=== PATIENT | male | born 1990 | race Caucasian/White ===

== ENCOUNTER 2020-05-13 23:50 | Emergency (ER) | payer BC, SELFPAY ==
[2020-05-13 23:55] VITALS: BP 138/82; PULSE 83; RESP 18; TEMP 36.4; O2SAT 99
--- NOTE | 2020-05-14 00:13 | ED.DENTAL ---
HPI - Dental/Oral General Chief complaint: Dental/Oral Stated complaint: dental pain Time Seen by Provider: 05/14/20 00:12 History of Present Illness HPI Narrative: Severe pain in the right lower molars for a few days. Believes that he lost a filling. Tried OTC medications without relief. Unable to get a dentist appointment for several days. No fever, swelling, drainage. Related Data Home Medications Medication Instructions Recorded Confirmed escitalopram oxalate [Lexapro] 10 mg PO DAILY 05/14/20 ibuprofen 400 mg PO Q6H PRN 05/14/20 05/14/20 omeprazole 20 mg PO DAILY 05/14/20 Allergies Allergy/AdvReac Type Severity Reaction Status Date / Time No Known Allergies Allergy Verified 05/14/20 00:11 Review of Systems Review of Systems: All systems reviewed & are unremarkable except as noted in HPI and below Constitutional: Constitutional: Denies fever(s) ENT: Reports dysphagia, Denies vertigo and Denies dizziness Cardiovascular: Cardiovascular: Denies chest pain Respiratory: Respiratory: Denies dyspnea PMFSH Social History Social History Gender identity (if verbalized by the patient): Male Exam Const: General: healthy appearing, no acute distress and alert Nutritional Appearance: well nourished Orientation/consciousness: patient oriented x3 HENMT: Face and sinus: normal facial exam Teeth and gingiva: abnormal tooth and associated gingiva (Multiple fillings and carries. No erythema or swelling. ) Neck: Neck: normal visual inspection and no lymphadenopathy Resp: Effort & Inspection: normal respiratory effort Auscultation: clear to auscultation bilaterally Cardio: Rate: regular rate Rhythm: regular rhythm Skin: General skin exam: normal color Neuro: General: patient oriented x3 Speech: normal speech Course Vital Signs Vital signs: Vital Signs Temperature 36.4 C 05/13/20 23:55 Pulse Rate 83 05/13/20 23:55 Respiratory Rate 18 05/13/20 23:55 Blood Pressure 138/82 05/13/20 23:55 Pulse Oximetry 99 05/13/20 23:55 Temperature 36.4 C 05/13/20 23:55 Pulse Rate 77 05/14/20 02:20 Respiratory Rate 17 05/14/20 02:20 Blood Pressure 125/73 05/14/20 02:20 Pulse Oximetry 97 05/14/20 02:20 Procedures Nerve Block Nerve Block 1: Local Anesthetic: lidocaine 1%, bupivacaine 0.5% and with epi Amount of anesthesia used (mL): 5 Side: right Intraoral Nerve Block: inferior alveolar Procedure Successful: Yes Patient Tolerated Procedure: well Complications: none MDM - Dental/Oral MDM Narrative Medical decision making narrative: No obvious sign of infection and certainly no drainable abscess. Symptoms relieved with dental block. Advised him on nonnarcotic pain control. Discharge Plan Discharge Clinical Impression: Dentalgia Patient Disposition: Home, Self-Care Condition: Stable Instructions: Antibiotic Form, Toothache (ED) Prescriptions: New penicillin V potassium 500 mg tablet 500 mg PO Q12H Qty: 20 RF: 0 No Action ibuprofen 200 mg Tablet 400 mg PO Q6H PRN (Reason: Pain) RF: 0 omeprazole 20 mg Capsule,Delayed Release(Dr/Ec) 20 mg PO DAILY RF: 0 escitalopram oxalate [Lexapro] 10 mg Tablet 10 mg PO DAILY RF: 0 Follow-up/Referrals: Arlene,DO Uday [Primary Care Provider] - Stand Alone Forms: Work/School Release IP Discharge Date/Time: 05/14/20 02:20
[2020-05-14 02:20] VITALS: BP 125/73; PULSE 77; RESP 17; O2SAT 97
== END 2020-05-14 02:20 | disposition home or self-care (01) ==
PROVIDERS: Emergency Provider Emergency Medicine; PCP Student in an Organized Health Care Education/Training Program
DX: K08.89 Other specified disorders of teeth and supporting structures (principal)
CPT/HCPCS: 64999; 99283